=== PATIENT | female | born 1980 | race Hispanic/Latino ===

== ENCOUNTER 2021-11-08 09:26 | Outpatient (CLI) | payer SELFPAY ==
[2021-11-08 10:12] LABS: #Eosinphils 0.1 10x3/uL (0.0-0.5); #Monocytes 0.5 10x3/uL (0.0-1.1); #Neutrophils 5.3 10x3/uL (1.5-8.4); %Basophils 0.4 % (0.0-2.0); %Eosinophils 1.2 % (0.0-6.0); %Lymphocytes 40.4 % (18.0-47.0); %Monocytes 4.7 % (0.0-10.0); Hemoglobin 14.2 g/dL (12.0-15.5); Mean Corpuscular HGB CONC 34.5 g/dL (32.0-36.0); Mean Corpuscular Hemoglobin 29.2 pg (27.0-33.0); Mean Corpuscular Volume 84.8 fl (81.6-98.3); Mean Platelet Volume 9.3 fl (7.4-10.4); Platelet Count 272 10x3/uL (150-450); Red Blood Cell (RBC) Count 4.86 10x6/uL (3.90-5.03); White Blood Cell (WBC) Count 9.9 10x3/uL (3.5-10.5)
== END 2021-11-08 09:27 | disposition home or self-care (01) ==
LOC: LABBT 09:26
PROVIDERS: ATTEND Surgery
DX: Z01.818 Encounter for other preprocedural examination (principal); D17.22 Benign lipomatous neoplasm of skin and subcutaneous tissue of left arm; Z20.822 Contact with and (suspected) exposure to COVID-19
CPT/HCPCS: 85025; 87811; 93005; 93010

== ENCOUNTER 2021-11-11 05:49 | Day surgery (SDC) | payer OTHER ==
[2021-11-09 12:35] VITALS: BMI 33.3
[2021-11-11] MEDS ORDERED: Midazolam HCl 2 mg/2 ml Vial ONE ×2 (06:39→07:44)
[2021-11-11] MEDS ORDERED: fentaNYL Citrate/PF 100 MCG/2 ML SYRINGE ONE (06:40)
[2021-11-11] MEDS ORDERED: Bupivacaine/Epinephrine 0.25% 30 ML VIAL ONE (06:56)
[2021-11-11] MEDS ORDERED: Lidocaine 2% PF 5 ML VIAL ONE (06:56)
[2021-11-11] MEDS ORDERED: Famotidine/PF 20 mg/2ml Vial ONE (07:44)
[2021-11-11] MEDS ORDERED: CEFAZOLIN 2 GM VIAL ONE (07:50)
[2021-11-11] MEDS ORDERED: Sodium Chloride 0.9% 100 ML ONE (07:51)
[2021-11-11] MEDS ORDERED: Ketorolac Tromethamine 30 MG/ML VIAL ONE (08:02)
[2021-11-11] MEDS ORDERED: Ondansetron PF 4 MG/2 ML Vial ONE (08:02)
[2021-11-11] MEDS ORDERED: PROPOFOL 200 MG/20 ML VIAL ONE (08:02)
[2021-11-11] MEDS ORDERED: Lidocaine 1% PF 5 ML VIAL ONE (08:02)
[2021-11-11] MEDS ORDERED: Dexamethasone 20 MG/5 ML VIAL ONE (08:02)
[2021-11-11] MEDS ORDERED: HYDROcodone/Acetaminophen 5/325 mg Tablet ONE (10:07)
== END 2021-11-11 10:42 | disposition home or self-care (01) ==
LOC: SDC 05:49
PROVIDERS: ATTEND Surgery
PROC: 0JBF0ZX Excision of Left Upper Arm Subcutaneous Tissue and Fascia, Open Approach, Diagnostic (ICD-10-PCS; principal; 2021-11-11)
DX: D17.22 Benign lipomatous neoplasm of skin and subcutaneous tissue of left arm (principal); Z79.899 Other long term (current) drug therapy; E78.00 Pure hypercholesterolemia, unspecified
CPT/HCPCS: 88304; J0690; J1100; J1885; J2001; J2250; J2405; J2704; J3490; S0028